=== PATIENT | female | born 2000 | race American Indian/Alaskan Native ===

== ENCOUNTER 2018-11-05 15:42 | Emergency (ER) | payer SELFPAY ==
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
[2018-11-05 16:12] VITALS: BP 109/66
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
[2018-11-05] MEDS ORDERED: IBUPROFEN PO ONE (17:38)
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
== END 2018-11-05 18:59 | disposition home or self-care (01) ==
LOC: ED 15:42
DX: S13.4XXA Sprain of ligaments of cervical spine, initial encounter (principal); S46.912A Strain of unspecified muscle, fascia and tendon at shoulder and upper arm level, left arm, initial encounter; Z79.899 Other long term (current) drug therapy; V89.2XXA Person injured in unspecified motor-vehicle accident, traffic, initial encounter; Y93.89 Activity, other specified; Y92.488 Other paved roadways as the place of occurrence of the external cause; Y99.8 Other external cause status
CPT/HCPCS: 72040; 99283